=== PATIENT | male | born 1960 | race Caucasian/White ===

== ENCOUNTER 2022-08-19 08:10 | Day surgery (SDC) | payer BC, OTHER ==
[~2022-08-19 08:10] MED LIST: Acetaminophen 1,000 MG in Premix Bag 1 BAG IV SCH; Lactated Ringers 1,000 ML IV SCH; Pregabalin 75 MG Cap PO SCH; cefOXitin 2 GM in Premix Bag 1 BAG IV SCH
[2022-08-19] MEDS ORDERED: Metoclopramide 10 MG/2 ML SDV IVPUSH PRN (08:29)
[2022-08-19] MEDS ORDERED: Albuterol 0.083% 2.5 MG/3 ML Neb Soln NEB PRN (08:29)
[2022-08-19] MEDS ORDERED: Ondansetron 4 MG/2 ML SDV IVPUSH PRN (08:29)
[2022-08-19] MEDS ORDERED: fentaNYL 50 MCG/ML SDV IVPUSH PRN (08:29)
[2022-08-19] MEDS ORDERED: Naloxone 0.4 MG/ML SDV IVPUSH PRN (08:29)
[2022-08-19] MEDS ORDERED: Morphine 2 MG/ML SYRINGE IVPUSH PRN (08:29)
[2022-08-19] MEDS ORDERED: HYDROmorphone 1 MG/ML Syringe IVPUSH PRN (08:29)
[2022-08-19] MEDS ORDERED: Propofol 200 MG/20 ML SDV ONE ×2 (09:28→12:11)
[2022-08-19] MEDS ORDERED: fentaNYL 100 MCG/2 ML SDV ONE (09:28)
[2022-08-19] MEDS ORDERED: Ondansetron 4 MG/2 ML SDV ONE (09:33)
[2022-08-19] MEDS ORDERED: Dexmedetomidine 200 MCG/2 ML SDV ONE (09:33)
[2022-08-19] MEDS ORDERED: Sugammadex Sodium 200 MG/2 ML VIAL ONE (09:33)
[2022-08-19] MEDS ORDERED: Dexamethasone 4 MG/ML 5 ML MDV ONE (09:33)
[2022-08-19] MEDS ORDERED: Lidocaine 1% 5 ML VIAL ONE (09:33)
[2022-08-19] MEDS ORDERED: Rocuronium Bromide 50 MG/5 ML Syringe ONE (09:33)
[2022-08-19] MEDS ORDERED: Ketorolac 30 MG/ML SDV ONE (09:33)
[2022-08-19] MEDS ORDERED: Bupivacaine 0.25% 30 ML SDV ONE ×2 (09:58→10:02)
[2022-08-19] MEDS ORDERED: Magnesium Sulfate (4.06 MEQ/ML) 5 GM/10 ML SDV ONE (10:20)
[2022-08-19] MEDS ORDERED: Indocyanine Green 25 MG SDV ONE (10:44)
[2022-08-19] MEDS ORDERED: ePHEDrine 50 MG/ML SDV ONE (10:57)
== END 2022-08-19 14:40 | disposition home or self-care (01) ==
LOC: MW.SDS 08:10
PROVIDERS: ATTEND Surgery
DX: K80.10 Calculus of gallbladder with chronic cholecystitis without obstruction (principal); K82.8 Other specified diseases of gallbladder; I10 Essential (primary) hypertension; Z79.899 Other long term (current) drug therapy; Z88.8 Allergy status to other drugs, medicaments and biological substances; Z91.048 Other nonmedicinal substance allergy status
CPT/HCPCS: 47562; A9270; J0131; J1100; J1885; J2405; J2704; J3010; J3475; J3490; J7120; 00790; 64488